=== PATIENT | male | born 1970 | race Hispanic/Latino ===

== ENCOUNTER 2020-03-15 04:13 | Emergency (ER) | payer BC, OTHER ==
[2020-03-15] MEDS ORDERED: LEVOFLOXACIN 500 MG/D5W 100 ML 100 ML ONE (05:15)
[2020-03-15] MEDS ORDERED: ONDANSETRON HCL 4 MG/2 ML VIAL ONE (05:15)
[2020-03-15] MEDS ORDERED: METRONIDAZOLE 500MG/100ML BAG 100 ML ONE (05:15)
[2020-03-15] MEDS ORDERED: MORPHINE SULFATE 2 MG/ML 1ML SYG ONE (05:16)
== END 2020-03-15 06:13 | disposition home or self-care (01) ==
LOC: EDH 04:13
DX: K57.92 Diverticulitis of intestine, part unspecified, without perforation or abscess without bleeding (principal)
CPT/HCPCS: 36415; 80053; 81003; 83690; 85025; 96365; 96375; 99284; J1956; J2405; J3490

== ENCOUNTER → 2023-01-16 | Outpatient (CLI) | payer OTHER | END | disposition home or self-care (01) | LOC: OIH 07:38 | PROVIDERS: ATTEND Family Medicine | DX: Z13.6 Encounter for screening for cardiovascular disorders (principal); R93.1 Abnormal findings on diagnostic imaging of heart and coronary circulation | CPT/HCPCS: 75571 ==

== ENCOUNTER → 2023-03-30 | Outpatient (CLI) | payer BC | END | disposition home or self-care (01) | LOC: SHCH 15:29 | PROVIDERS: ATTEND Internal Medicine Cardiovascular Disease | DX: R01.1 Cardiac murmur, unspecified (principal) | CPT/HCPCS: 93306 ==

== ENCOUNTER → 2024-06-20 | Outpatient (CLI) | payer BC | END | disposition home or self-care (01) | LOC: RAH 12:39 | PROVIDERS: ATTEND Orthopaedic Surgery | DX: S83.241A Other tear of medial meniscus, current injury, right knee, initial encounter (principal); X58.XXXA Exposure to other specified factors, initial encounter; Y93.89 Activity, other specified; Y92.89 Other specified places as the place of occurrence of the external cause; Y99.8 Other external cause status | CPT/HCPCS: 73721 ==

== ENCOUNTER 2024-08-15 06:16 | Day surgery (SDC) | payer BC ==
[2024-08-13 12:35] VITALS: BP 119/67; PULSE 51; RESP 18; TEMP 98.1
[2024-08-13 13:09] LABS: BASOPHILS # (AUTO) 0.06 K/uL (0.00-0.20); BASOPHILS % (AUTO) 1.1 % (0.0-5.0); EOSINOPHILS # (AUTO) 0.08 K/uL (0.00-0.70); EOSINOPHILS % (AUTO) 1.5 % (0.0-8.0); HEMATOCRIT 45.8 % (42-54); IMMATURE GRANULOCYTE ABSOLUTE 0.01 K/uL (0-1); LYMPHOCYTES # (AUTO) 1.9 K/uL (1.0-4.8); LYMPHOCYTES % (AUTO) 35.6 % (21.0-51.0); MEAN CORPUSCULAR HEMOGLOBIN 30.5 pg (27.0-33.0); MEAN CORPUSCULAR HGB CONC 35.2 g/dL (32.0-36.0); MEAN CORPUSCULAR VOLUME 86.7 fL (79-99); MONOCYTES # (AUTO) 0.5 K/uL (0.1-1.0); MONOCYTES % (AUTO) 9.7 % (3.0-13.0); NEUTROPHILS # (AUTO) 2.8 K/uL (1.8-7.7); NEUTROPHILS % (AUTO) 51.9 % (40.0-77.0); PLATELET COUNT (AUTO) 215 K/uL (130-400); RED BLOOD CELL COUNT(AUTO) 5.28 MIL/uL (4.50-6.20); RED CELL DISTRIBUTION WIDTH 12.3 % (11.0-15.5); WHITE BLOOD COUNT (AUTO) 5.5 K/uL (4.8-10.8)
[2024-08-13 13:15] LABS: POTASSIUM 4.1 mmol/L (3.5-5.1)
[~2024-08-15] VITALS: Ht 165.1 cm; Wt 80.4 kg
[2024-08-15] VITALS (13 sets, daily range): BP systolic 122–157; BP diastolic 75–91; PULSE 50–76; RESP 14–18; TEMP 97.6–98.1
[~2024-08-15 06:16] MED LIST: ATOR10TA69 PO; AZEL137S11 EN; FLUT16H EN; LEVO5TAB13 PO
[2024-08-15] MEDS: LACTATED RINGERS 1000ML 1,000 ML IV ONE (07:17)
[2024-08-15] MEDS: ceFAZolin SODIUM 2 GM VIAL ONE (07:17)
[2024-08-15 07:31] LABS: INR 1.01 (0.85-1.15); PROTHROMBIN TIME 10.9 SEC (9.6-11.6)
[2024-08-15] MEDS ORDERED: rocuRONium bROMide 10MG/1ML 5ML VL ONE (07:31)
[2024-08-15] MEDS ORDERED: MIDAZOLAM HCL 1 MG/ML 2ML VIAL ONE (07:31)
[2024-08-15] MEDS ORDERED: proPOFol 10 MG/ML 20ML VIAL IV ONE (07:31)
[2024-08-15] MEDS ORDERED: LIDOCAINE HCL MPF 1% 5ML VIAL ONE (07:31)
[2024-08-15 07:32] LABS: PARTIAL THROMBOPLASTIN TIME 29.3 SEC (26.3-35.5)
[2024-08-15] MEDS ORDERED: FENTanyl CITRate PF 50 MCG/1 ML 2ML VIAL ONE (07:32)
[2024-08-15] MEDS ORDERED: ondanSETRON 4MG INJ ONE (07:32)
[2024-08-15] MEDS ORDERED: dexaMETHasone SOD PHOSPHATE 4 MG/ML 1ML VIAL ONE (07:32)
[2024-08-15] MEDS ORDERED: ketOROlac 30MG VIAL (30MG/ML) ONE ×2 (10:21→10:22)
[2024-08-15] MEDS ORDERED: GLYCOPYRROLATE 0.2 MG/ML 5 ML VIAL ONE (10:21)
[2024-08-15] MEDS ORDERED: NEOSTIGMINE METHYLSULFATE 1MG/ML IV ONE (10:21)
--- NOTE | 2024-08-15 10:29 | OP ---
Operative Note: DATE OF PROCEDURE: 08/15/24 SURGEON: MARISA MARKS MD [facility] ATTENDANT: [WALTER SINGER CFA] ANESTHESIA: [GENERAL ANESTHESIA] PREOPERATIVE DIAGNOSIS: [RIGHT KNEE MEDIAL MENISCAL TEAR] POSTOPERATIVE DIAGNOSIS: [RIGHT KNEE MEDIAL MENISCAL TEAR] PROCEDURE: [RIGHT KNEE ARTHROSCOPIC PARTIAL MEDIAL MENISCECTOMY] ESTIMATED BLOOD LOSS: [LESS THAN 5 ML] INDICATIONS: [54-YEAR-OLD MALE WITH HISTORY OF PAIN TO THE RIGHT KNEE MEDIAL COMPARTMENT THAT HAS NOT RESPONDED TO CONSERVATIVE TREATMENT. THE MRI POSITIVE FOR A POSTERIOR HORN MEDIAL MENISCAL TEAR. THE PATIENT IS BROUGHT TO THE OPERATING ROOM FOR AN ARTHROSCOPIC PARTIAL MEDIAL MENISCECTOMY. PROCEDURE UNDERSTOOD, RISKS, BENEFITS AND POSSIBLE COMPLICATIONS AND AGREED SIGNED THE CONSENT FORM] DESCRIPTION OF PROCEDURE: [AFTER ADEQUATE GENERAL ANESTHESIA WAS ACHIEVED THE PATIENT'S RIGHT LOWER EXTREMITY WAS PREPPED AND DRAPED IN THE USUAL MANNER PREVIOUS PLACEMENT OF THE TOURNIQUET IN THE PROXIMAL THIGH. THE EXTREMITY WAS E LEVATED AND EXSANGUINATED WITH AN ESMARCH BAND AND THE TOURNIQUET WAS INFLATED TO 250 MMHG THE ESMARCH BAND BEEN THEN REMOVED. THE LEG WAS BROUGHT TO THE SIDE OF THE BED WITH THE KNEE IN 90 DEGREES OF FLEXION AND 2 SMALL INCISIONS WERE MADE MEDIAL AND LATERAL TO THE PATELLA TENDON AT THE JOINT LINE LEVEL THROUGH THE SKIN FOLLOWED BY BLUNT DISSECTION WITH A TROCAR PENETRATING INTO THE JOINT. THROUGH THE LATERAL PORTAL THE ARTHROSCOPIC CANNULA WAS INSERTED AND THEN AFTER THE CANNULA WAS REMOVED THE SCOPE WAS INSERTED IN THE SHEATH BRINGING THE KNEE ON THE TABLE IN EXTENSION PLACING THE SCOPE IN THE SUPRAPATELLAR AREA WHICH WAS NOTED TO BE NORMAL WITH A NORMAL QUADRICEPS TENDON AND PATELLOFEMORAL JOINT. THE KNEE WAS THEN BROUGHT INTO FLEXION ON THE SIDE OF THE BED AND THE SCOPE FOLLOW INTO THE MEDIAL COMPARTMENT WHERE AFTER VALGUS STRESS WAS DONE WE WERE ABLE TO VISUALIZE THE MEDIAL COMPARTMENT AND A TEAR OF THE POSTERIOR HORN OF THE MENISCUS WAS VISUALIZED AND WAS VERY UNSTABLE. WITH THE USE OF THE MENISCAL SHAVER WELL AN TRIMMERS WE PROCEEDED TO REMOVE THE TORN TISSUE LEAVING HOOK STABLE TISSUE REMOVING ALL THE DEBRIS. WE THEN PROCEEDED TO BRING THE SCOPE TO THE INTERCONDYLAR NOTCH NOTICING THAT THE ACL AND PCL WERE NORMAL AND THEN WITH A [id number] POSITION OF THE KNEE WE WERE ABLE TO VISUALIZE THE LATERAL COMPARTMENT WHICH SHOW NORMAL CHARACTERISTICS OF THE MENISCUS AND THE ARTICULAR SURFACE. THE ARTHROSCOPE WAS THEN REMOVED FROM THE JOINT WELL THE FLUID AND WE THEN PROCEEDED TO CLOSE THE INCISIONS WITH #3-0 NYLON SIMPLE STITCHES. A SOFT DRESSING WAS APPLIED TO COVER THE SMALL INCISIONS FOLLOWED BY APPLICATION OF AN SCOTT BANDAGE. THE DRAPES WERE THEN REMOVED AFTER THE TOURNIQUET WAS DEFLATED AND THE PATIENT WAS TRANSFERRED TO THE STRETCHER AND THEN TAKEN TO RECOVERY ROOM FOR FOLLOW-UP BY ANESTHESIA. THERE WERE NO COMPLICATIONS DURING THE PROCEDURE.] MARISA MARKS MD Aug 15, 2024 10:29
[2024-08-15] MEDS ORDERED: SUGAMMADEX SODIUM 200 MG/2 ML VIAL IV ONE (10:31)
[2024-08-15] MEDS ORDERED: NAPR-1023 PO (10:32)
[2024-08-15] MEDS ORDERED: ACET-2079 PO (10:32)
--- NOTE | 2024-08-15 11:42 | NUR ---
CRUTCHES GIVEN TO PT, EDUCATION ON CRUTCH WALKING GIVEN AND ABLE TO DEMONSTRATE CORRECT CRUTCH WALKING.
== END 2024-08-15 11:54 | disposition home or self-care (01) ==
LOC: DAH 06:16
PROVIDERS: ATTEND Orthopaedic Surgery
DX: S83.241A Other tear of medial meniscus, current injury, right knee, initial encounter (principal); E78.5 Hyperlipidemia, unspecified; Z79.01 Long term (current) use of anticoagulants; Z90.49 Acquired absence of other specified parts of digestive tract; Z83.3 Family history of diabetes mellitus; Z82.49 Family history of ischemic heart disease and other diseases of the circulatory system; Z79.899 Other long term (current) drug therapy; Z98.890 Other specified postprocedural states; X58.XXXA Exposure to other specified factors, initial encounter; Y93.89 Activity, other specified; Y92.89 Other specified places as the place of occurrence of the external cause; Y99.8 Other external cause status
CPT/HCPCS: 80048; 85025; 36415 ×2; 29881; 85610; 85730; J1100; A4223 ×2; A4663; J7120 ×2; A4649 ×3; J3010; J3490 ×3; J2250; J2704; J2405; J1885 ×2; J2710; J0690; A6223; A5120; A4215; A4222; A4221; A4216; A6450; A4606